=== PATIENT | female | born 1960 | race Two or more races ===

== ENCOUNTER 2018-12-17 14:28 | Emergency (ER) | payer MEDICAID ==
[~2018-12-17] VITALS: Ht 162.6 cm; Wt 63.5 kg
[2018-12-17 15:06] VITALS: BP 126/83
== END 2018-12-17 16:22 | disposition home or self-care (01) ==
LOC: ER 14:36
DX: M54.5 Low back pain (principal); M25.562 Pain in left knee; Z88.8 Allergy status to other drugs, medicaments and biological substances

== ENCOUNTER 2019-02-18 09:49 | Emergency (ER) | payer MEDICAID ==
[~2019-02-18] VITALS: Ht 165.1 cm; Wt 63.5 kg
[2019-02-18 10:11] VITALS: BP 134/81
== END 2019-02-18 11:03 | disposition home or self-care (01) ==
LOC: ER 09:49
DX: T78.40XA Allergy, unspecified, initial encounter (principal); K04.7 Periapical abscess without sinus; Z88.8 Allergy status to other drugs, medicaments and biological substances; X58.XXXA Exposure to other specified factors, initial encounter

== ENCOUNTER 2023-12-31 19:07 | Emergency (ER) | payer MEDICAID ==
[~2023-12-31] VITALS: Ht 165.1 cm; Wt 60.9 kg
[2023-12-31 19:20] VITALS: BP 143/84; PULSE 90; RESP 18; O2SAT 98
[2023-12-31 19:51] LABS: Urine Bacteria None Seen /hpf (None Seen)
[2023-12-31 20:18] LABS: Urine Amorphous Crystal MOD /hpf (None Seen); Urine Blood Negative /uL (Negative); Urine Clarity Ex.Turbid (Clear); Urine Color Dark-Yellow (Yellow); Urine Protein, UAD TRACE (Negative); Urine Specific Gravity 1.019 (1.001-1.035); Urine Urobilinogen Normal (Negative); Urine WBC 19 /hpf (0 - 5)
[2023-12-31 20:56] LABS: Basophils # (auto) 0 10 ^3/uL (0-0.2); Basophils % (auto) 0.4 % (0.0-2.0); Eosinophils # (auto) 0 10 ^3/uL (0-0.8); Eosinophils % (auto) 0.7 % (0.0-7.0); Hemoglobin 13.7 g/dL (12.2-16.2); Lymphocytes # (auto) 1.7 10 ^3/uL (0.4-5.4); Lymphocytes % (auto) 26.9 % (10.0-50.0); Mean Corpuscular Hemoglobin 33.6 pg (28.0-32.0); Mean Corpuscular Hgb Conc. 35.2 g/dL (32.0-36.0); Mean Corpuscular Volume 95.5 fL (80.0-100.0); Monocytes # (auto) 0.4 10 ^3/uL (0-1.3); Monocytes % (auto) 5.9 % (0.0-12.0); Neutrophils # (auto) 4.1 10 ^3/uL (1.6-8.6); Neutrophils % (auto) 66.1 % (37.0-80.0); Nucleated Red Blood Cells % 0.1 %; Platelet Count (auto) 236 10^3/uL (140-450); Red Blood Cells 4.09 10^6/uL (4.0-5.20); White Blood Cell 6.2 10^3/uL (4.4-10.8)
[2023-12-31 21:07] LABS: Alanine Aminotransferase 84 U/L (7-40); Albumin 4.5 g/dL (3.2-4.8); Alkaline Phosphatase 123 U/L (46-116); Anion Gap 7 (5-15); Aspartate Aminotransferase 81 U/L (13-40); BUN/Creatinine Ratio 14.9 (10.0-20.0); Blood Urea Nitrogen 13 mg/dL (9-23); Calcium 9.7 mg/dL (8.7-10.4); Carbon Dioxide 26 mmol/L (20-30); Chloride 108 mmol/L (98-107); Glucose 122 mg/dL (74-106); Potassium 3.8 mmol/L (3.5-5.1); Sodium 141 mmol/L (136-145)
[2023-12-31 21:08] LABS: Bilirubin, Total 0.8 mg/dL (0.2-1.0); Total Protein 7.3 g/dL (5.7-8.2)
[2023-12-31 21:22] LABS: Lipase 50 U/L (12-53)
[2023-12-31] MEDS ORDERED: NITR-52 PO (22:24)
[2023-12-31] MEDS: HYDROcodone-ACET 5/325MG TAB PO ONE (22:38)
== END 2023-12-31 22:41 | disposition home or self-care (01) ==
LOC: ER 19:07
DX: N39.0 Urinary tract infection, site not specified (principal); I10 Essential (primary) hypertension; Z98.890 Other specified postprocedural states; Z88.8 Allergy status to other drugs, medicaments and biological substances
CPT/HCPCS: 36415; 74176; 80053; 81001; 83605; 83690; 84484; 85025